=== PATIENT | female | born 1940 | race Caucasian/White ===

== ENCOUNTER 2021-06-23 13:23 | Emergency (ER) | payer OTHER ==
[~2021-06-23] VITALS: Ht 162.6 cm; Wt 87.5 kg
[2021-06-23] MEDS ORDERED: NORCO5 PO ×2 (15:53→16:14)
[2021-06-23 16:16] VITALS: BP 117/75
== END 2021-06-23 16:16 | disposition home or self-care (01) ==
LOC: ER 13:23
DX: S52.591A Other fractures of lower end of right radius, initial encounter for closed fracture (principal); S80.211A Abrasion, right knee, initial encounter; S01.112A Laceration without foreign body of left eyelid and periocular area, initial encounter; S01.422A Laceration with foreign body of left cheek and temporomandibular area, initial encounter; W18.39XA Other fall on same level, initial encounter; Y93.89 Activity, other specified; Y92.89 Other specified places as the place of occurrence of the external cause; Y99.8 Other external cause status